=== PATIENT | male | born 1950 | race African-American/Black ===

== ENCOUNTER 2017-02-03 10:33 | Inpatient (IN) | payer OTHER ==
[2017-02-03] MEDS ORDERED: SODIUM CHLORIDE 1,000 ML IV STA ×2 (10:49→13:28)
[2017-02-03] MEDS ORDERED: PIPERACILLIN/TAZOB 3.375 GM 50 ML IVPB ONE (10:49)
[2017-02-03] MEDS ORDERED: VANCOMYCIN 1,250 MG in DEXTROSE 5%-WATER - 250 ML IVPB ONE (10:49)
--- NOTE | 2017-02-03 10:52 | PDOC ---
Attending Attestation - Resident Resident Name: Donald Healy - HPI HPI: 02/03/17 13:05 pt presents to the ED complaining of draining wound to the buttock that has been present for one week. Wound has copious purulent drainage. states that he was febrile last week, but that his fever has now resolved. Denies nausea or vomiting. Patient also denies scrotal pain or urinary complaints. Seen in wound clinic for this complaint today, and sent to the ED because of the extensive nature of the wound. - Physicial Exam PE: 02/03/17 13:25 Agree with resident exam. Patient has deep, foul smelling wound to the left buttock with extensive purlent drainage. wound is very deep and area of erythema involves his entire perineum. 02/03/17 13:38 - Medical Decision Making 02/03/17 13:39 pt presents to the ED complaining of wound to the buttocks. Patient shows clear signs of severe infection. Will give IV hydration and broad spectrum antibiotics and check CT to examine for perirectal abscess. Will admit for intravenous antibiotics and likely I and D in the OR.
--- NOTE | 2017-02-03 11:08 | PDOC ---
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 The patient is accompanied by family who assist in providing the history. They report that the patient began having a small sore near his rectum from riding his bike which eventually continued to progress over the last 1-2 weeks. They report that patient has been having intermittent fevers as well. They went to the wound clinic to be evaluated given the wound continued to drain purulent fluid and was very foul smelling. He denies chest pain, SOB, abdominal pain, or changes with urination. Past History - Past Medical History Allergies/Adverse Reactions: Allergies Allergy/AdvReac Type Severity Reaction Status Date / Time No Known Allergies Allergy Verified 02/03/17 10:40 Home Medications: Ambulatory Orders Unobtainable [Unobtainable] 06/17/16 Asthma: Yes COPD: No HTN: Yes - Suicide/Smoking/Psychosocial Hx Smoking History: Current every day smoker Have you smoked in the past 12 months: Yes Number of Cigarettes Smoked Daily: 10 Information on smoking cessation initiated: No Hx Alcohol Use: No Drug/Substance Use Hx: No Substance Use Type: None Review of Systems - Review of Systems Comments:: 02/03/17 11:27 Constitutional: Fevers. No chills, fatigue, malaise HEENT: No Rhinorrhea, nasal congestion, visual changes Cardiovascular: No chest pain, syncope, palpitations, lightheadedness Respiratory: No Cough, SOB, Hemoptysis, Gastrointestinal: No Abdominal pain, Nausea, Vomiting, Constipation, Diarrhea, Melena Genitourinary: Rectal wound. No Dysuria, Frequency, Urgency, Hesitancy, Hematuria, Flank pain Musculoskeletal: No Myalgia, arthralgia Skin: No rashes, itching, bruising, pallor Neurologic: No Headache, Dizziness, Numbness, Weakness, or Tingling Psychiatric: No Hallucinations. No SI or HI *Physical Exam - Vital Signs Last Vital Signs Temp Pulse Resp BP Pulse Ox 98.2 F 113 H 20 128/92 97 02/03/17 10:38 02/03/17 10:38 02/03/17 10:38 02/03/17 10:38 02/03/17 10:38 - Physical Exam Comments: 02/03/17 11:33 General Appearance: Nourished. No Apparent Distress HEENT: EOMI, SHERYL. No Pharyngeal Erythema, Tonsillar Exudate, Tonsillar Erythema Neck: No Cervical Lymphadenopathy Respiratory/Chest: Lungs Clear, Normal Breath Sounds. No Crackles, Rales, Rhonchi, Wheezing Cardiovascular: Regular Rhythm, Regular Rate. No Murmur, Gallops, Rubs Gastrointestinal/Abdominal: Normal Bowel Sounds, Soft. No Guarding, Rebound, Tenderness Rectal/Genital Exam: 4cm wound surrounding the rectum tracking deep to the perineum draining foul smelling purulent fluid. Enlarged tender scrotum. Musculoskeletal: No CVA Tenderness Extremity: Normal Capillary Refill Integumentary: Normal Color, Dry, Warm Neurologic: Fully Oriented, Alert, Normal Mood/Affect, Normal Response, ED Treatment Course - LABORATORY CBC & Chemistry Diagram: 02/04/17 07:00 02/04/17 07:00 - RADIOLOGY Radiology Studies Ordered: Category Date Time Status PELVIS CT WITH CONTRAST [CT] Stat CT Scan 02/03/17 10:47 Ordered CHEST X-RAY PORTABLE* [RAD] Stat Radiology 02/03/17 10:47 Ordered Medical Decision Making - Medical Decision Making 02/03/17 11:38 The patient is a 66 year old male who denies any PMH who presents for evaluation from wound clinic for 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 Differential includes but is not limited to: Rectal abscess, Fourneir's gangrene , Sepsis, metabolic derangement. 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 We will obtain a ct pelvis with iv contrast to evaluate the extent of the wound. We will obtain a cbc, cmp, type and screen, lactate, troponin, vbg as part of a sepsis work up. We will treat the patient with iv fluids, vanc and zosyn here in the ED. We will continue to monitor and reassess. 02/03/17 12:00 CBC demonstrates an elevated wbc to 19.2. CMP is unremarkable. We discussed the case with Dr. Jennings who accepted the patient for admission after ct scan is obtained and requested consultation with Dr. Hunter and Dr. Dave. We discussed the case with Dr. Hunter with Surgery who requested that we obtain ct with rectal contrast and will come evaluate the patient. We will give a second bolus of fluids and keep the patient npo. 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 Dr. Mckenzie is aware and has evaluated the patient. *DC/Admit/Observation/Transfer Diagnosis at time of Disposition: Rectal abscess - Discharge Dispostion Condition at time of disposition: Guarded Admit: Yes - Referrals - Patient Instructions - Post Discharge Activity
[2017-02-03] MEDS ORDERED: PIPERACILLIN/TAZOB 3.375 GM 3.375 GM/50 ML BAG IVPB ONE ×2 (12:00→18:19)
[2017-02-03] MEDS ORDERED: VANCOMYCIN 1 GRAM (PRE-DOCKED) 1,000 MG/250 ML BAG IVPB ONE (12:00)
[2017-02-03 12:30] LABS: HEMATOCRIT 47.1 % (35.4-49); HEMOGLOBIN 15.3 GM/dL (11.7-16.9); MCH 29.8 pg (25.7-33.7); MCHC 32.6 g/dl (32.0-35.9); MEAN CELL VOLUME 91.5 fl (80-96); MEAN PLT VOLUME 7.6 fl (7.5-11.1); PLATELET COUNT 326 K/MM3 (134-434); RBC 5.15 M/mm3 (4.00-5.60); RDW 15.8 % (11.9-15.9); WHITE BLOOD COUNT 19.3 K/mm3 (4.0-10.0)
[2017-02-03 12:47] LABS: INR 1.11 (0.82-1.09); PROTHROMBIN TIME (PATIENT) 12.5 SEC (9.98-11.88)
[2017-02-03 12:48] LABS: ALBUMIN 2.7 g/dl (3.4-5.0); ANION GAP 10 (8-16); BILIRUBIN,TOTAL 0.6 mg/dL (0.2-1.0); BLOOD UREA NITROGEN 32 mg/dL (7-18); CALCIUM 9.7 mg/dL (8.5-10.1); CHLORIDE 104 mmol/L (98-107); CO2 23 mmol/L (21-32); CREATININE 1.3 mg/dL (0.7-1.3); GLUCOSE,RANDOM 113 mg/dL (74-106); SGPT/ALT 98 U/L (12-78); SODIUM 137 mmol/L (136-145); TOT PROT 7.7 g/dl (6.4-8.2)
[2017-02-03 12:50] LABS: ACTIVATED PTT 31.8 SECONDS (26.9-34.4); ALK PHOS 256 U/L (45-117)
[2017-02-03 12:51] LABS: POTASSIUM 3.9 mmol/L (3.5-5.1); SGOT/AST 96 U/L (15-37)
[2017-02-03 13:00] LABS: PLATELET ESTIMATE ADEQUATE
[2017-02-03 13:03] LABS: LYMPHOCYTE # 1.5 % (8-40); NEUTROPHILS # 14.9 % (42.8-82.8)
[2017-02-03 13:12] LABS: VENOUS PH 7.41 (7.32-7.42)
[2017-02-03] MEDS ORDERED: morphine CARPU-JECT 4 MG/1 ML DISP.SYRIN IVPUSH ONE (13:30)
[2017-02-03] MEDS ORDERED: morphine CARPU-JECT 8 MG/1 ML DISP.SYRIN ONE (15:04)
[2017-02-03] MEDS ORDERED: ONDANSETRON *ODT* 4 MG TABLET SL PRN ×2 (16:16→20:51)
[2017-02-03] MEDS ORDERED: morphine CARPU-JECT 8 MG/1 ML DISP.SYRIN IVPUSH PRN ×2 (16:16→20:51)
--- NOTE | 2017-02-03 16:29 | EKG ---
Test Reason : Blood Pressure : / mmHG Vent. Rate : 106 BPM Atrial Rate : 106 BPM P-R Int : 160 ms QRS Dur : 070 ms QT Int : 344 ms P-R-T Axes : 073 056 063 degrees QTc Int : 456 ms SINUS TACHYCARDIA BIATRIAL ENLARGEMENT SEPTAL INFARCT , AGE UNDETERMINED ABNORMAL ECG NO PREVIOUS ECGS AVAILABLE Confirmed by RICKIE MARCUS MD ([id number]) on 02/03/2017 4:29:00 PM Referred By: Confirmed By:RICKIE MARCUS MD
--- NOTE | 2017-02-03 16:37 | CONSULT ---
Consult Consult Specialty:: general surgery Referred by:: vivian delgado - ED Reason for Consultation:: perirectal abscess - History of Present Illness Chief Complaint: josé rectal abscess History of Present Illness: 66 yo male PMH HTN on monotheerapy, hypercholeterolemia, s/p right hand partial finger amputation presented to the ED sen from wound care center with extensive left josé-anal pain and four smelling drainage worsening for 1 week. Its began one week ago as "a pimple" or saddle sore on the left buttock. He rides a bicycle every day from the [place] to [facility]. The left-sided swelling became much worse and drained 2 days ago. Pain is tolerable 3/10, but he takes pain medication for finger pain. Now the area constantly drains very foul smelling drainage. He has had qualitative fevers and diaphoresis around the same time. There was no change in is bowel habits, he is frequently constipated and has hard stools. He has no associated abdominal pain. He has never had a colonoscopy nor any abdominal surgery. He denies CP, SOB, palpitations, headaches. - History Source History Provided By: Patient Limitations to Obtaining History: No Limitations - Past Medical History Cardio/Vascular: Yes: HTN Gastrointestinal: Yes: Constipation Musculoskeletal: Yes: Other (finger amputation) Additional Medical History: hypercholesterolemia - Past Surgical History Past Surgical History: Yes: None - Alcohol/Substance Use Hx Alcohol Use: No - Smoking History Smoking history: Current every day smoker Have you smoked in the past 12 months: Yes Aproximately how many cigarettes per day: 10 Home Medications - Allergies Allergies/Adverse Reactions: Allergies Allergy/AdvReac Type Severity Reaction Status Date / Time No Known Allergies Allergy Verified 02/03/17 10:40 - Home Medications Home Medications: Ambulatory Orders Unobtainable [Unobtainable] 06/17/16 Review of Systems - Review of Systems Constitutional: reports: Diaphoresis, Fever. denies: Chills Eyes: denies: Blurred Vision, Recent Change in Vision HENT: denies: Difficult Swallowing, Throat Pain Neck: denies: Swollen Glands, Tenderness Respiratory: denies: Cough, SOB Gastrointestinal: reports: Constipation. denies: Abdominal Pain, Bloating Genitourinary: denies: Burning, Discharge Breasts: reports: No Symptoms Reported. denies: Pain Musculoskeletal: reports: Other (right hand finger partial amputation). denies : Muscle Cramps, Muscle Weakness Integumentary: reports: Lesions. denies: Rash Neurological: denies: Confusion, Dizziness Endocrine: denies: Unexplained Weight Gain, Unexplained Weight Loss Psychiatric: denies: Anxiety, Depression Pain Intensity: 3 Physical Exam Vital Signs: Vital Signs Temperature 98.2 F 02/03/17 10:38 Pulse Rate 113 H 02/03/17 10:38 Respiratory Rate 20 02/03/17 10:38 Blood Pressure 128/92 02/03/17 10:38 O2 Sat by Pulse Oximetry (%) 97 02/03/17 10:38 Vital Signs Period Temp Pulse Resp BP Sys/Borrero Pulse Ox Last 24 Hr 98.2 F 113 20 128/92 97 Constitutional: Yes: Well Nourished, Calm, Mild Distress, Thin Eyes: Yes: Conjunctiva Clear, EOM Intact HENT: Yes: Atraumatic, Normocephalic Neck: Yes: Supple, Trachea Midline Cardiovascular: Yes: Regular Rate and Rhythm, S1, S2 Respiratory: Yes: Regular, CTA Bilaterally Gastrointestinal: Yes: Normal Bowel Sounds, Soft. No: Tenderness, Tenderness, Epigastrium, Tenderness, Rebound, Vomiting ...Rectal Exam: Yes: Induration, Inflammation, Sphincter Tone Normal, Other ( open left gluteal abscess 10X6cm >2cm deep with necrotyic sking and foul smelling drainage) Renal/: Yes: Other (srotum and testicles are uninvolved). No: Bladder Distention, CVA Tenderness - Left, CVA Tenderness - Right, Scrotal Edema, Urethral Discharge Extremities: Yes: Amputation (right hand partial finger). No: Cool, Cyanosis Edema: No Peripheral Pulses WNL: Yes Wound/Incision: Yes: Draining, Reddened, Unapproximated (left josé-anal area entension into the perineum) Neurological: Yes: Alert, Oriented Psychiatric: Yes: Alert, Oriented Labs: CBC, BMP 02/03/17 12:20 02/03/17 12:20 Abnormal Lab Results 02/03/17 02/03/17 02/03/17 12:20 12:20 12:20 WBC 19.3 H Band Neut # 14.9 L Lymph # (Auto) 1.5 L Monocytes % (Manual) 11 H PT with INR 12.50 H POC VBG pCO2 36.0 L POC VBG pO2 56.0 H BUN Random Glucose AST ALT Alkaline Phosphatase Albumin 02/03/17 12:20 WBC Band Neut # Lymph # (Auto) Monocytes % (Manual) PT with INR POC VBG pCO2 POC VBG pO2 BUN 32 H Random Glucose 113 H AST 96 H ALT 98 H Alkaline Phosphatase 256 H Albumin 2.7 L Imaging - Results Cat Scan: Report Reviewed, Image Reviewed (massive SQ emphysema in the tissues, left gluteal area) Problem List - Problems (1) José-rectal abscess Assessment/Plan: 66 yo male with left josé-anal/gluteal abscess with early extension to the perineum and josé-rectal [id number]>2cm foul smelling draining NPO and IVF hydration IV antibiotics Analgesia OR for Emergency [facility] surgical debridement of the left josé-rectal abscess - Discussed with patient risks, benefits and alternatives of surgery including but not limited to bleeding, infection, injury to adjacent structures, leak or injury, need for further procedures, ; alternatives include antibiotics, delayed or no surgery - risks of this include failure of nonoperative therapy, perforation, sepsis, recurrence, . Patient desires to proceed with operation - will take to OR for above. Informed consent signed for same. Trend labs in AM GI consult Code(s): K61.1 - RECTAL ABSCESS (2) HTN (hypertension) Assessment/Plan: resume oral medication post op Code(s): I10 - ESSENTIAL (PRIMARY) HYPERTENSION Qualifiers: Hypertension type: essential hypertension Qualified Code(s): I10 - Essential (primary) hypertension (3) Hypercholesteremia Assessment/Plan: resume oral medication postop Code(s): E78.00 - PURE HYPERCHOLESTEROLEMIA, UNSPECIFIED (4) Chronic constipation Code(s): K59.09 - OTHER CONSTIPATION
[2017-02-03] MEDS ORDERED: PIPERACILLIN/TAZOB 3.375 GM 3.375 GM in DEXTROSE 5%-WATER - 100 ML IVPB SCH ×2 (18:00→22:00)
--- NOTE | 2017-02-03 18:05 | HP ---
CHIEF COMPLAINT: perianal abscess with drainage PCP: Jacobo Denson HISTORY OF PRESENT ILLNESS: This is a 66 year old male with PMHx of HTN, s/p right hand partial middle finger amputation who presented to the ED with josé-anal pain and foul smelling discharge since Tuesday. The patient reports that about two weeks ago he noticed a pimple on his left buttock that has worsened. It then began draining foul smelling drainage this past Tuesday. The patient states that it is painful. He denies any chills, fever, headache, dizziness, nausea, vomiting, diarrhea. He denies any abdominal pain. He has never had a colonoscopy or any abdominal surgery. ER course was notable for: (1) Temp 98.2, pulse 113, BP 128/92, resp 20, O2 97% on RA (2) WBC 19.3 (3) AST 96, ALT 98, Alk Phos 256 (4) Pelvis CT with subcutaneous air along the left perineum tracking ventrally into the ipsilateral heriscrotum. A small fluid collection is seen within the left hemiscrotum posteriorly suggestive of an abscess. An additional small fluid collection suggestive of abscess formation in the left perineal region Recent Travel: denies PAST MEDICAL HISTORY: As above PAST SURGICAL HISTORY: As above Social History: Smokin/2 ppd Alcohol: occasional on tuesday and tuesday nights (2 beers) Drugs: denies Family History: Allergies No Known Allergies Allergy (Verified 02/03/17 10:40) HOME MEDICATIONS: Home Medications Medication Instructions Recorded Unobtainable [Unobtainable] 06/17/16 REVIEW OF SYSTEMS CONSTITUTIONAL: Absent: fever, chills, diaphoresis, generalized weakness, malaise, loss of appetite, weight change HEENT: Absent: rhinorrhea, nasal congestion, throat pain, throat swelling, difficulty swallowing, mouth swelling, ear pain, eye pain, visual changes CARDIOVASCULAR: Absent: chest pain, syncope, palpitations, irregular heart rate , lightheadedness, peripheral edema RESPIRATORY: Absent: cough, shortness of breath, dyspnea with exertion, orthopnea, wheezing, stridor, hemoptysis GASTROINTESTINAL: José-anal abscess that began 2 weeks ago and started draining foul smelling fluid since Tuesday. Absent: abdominal pain, abdominal distension , nausea, vomiting, diarrhea, constipation, melena, hematochezia GENITOURINARY: Absent: dysuria, frequency, urgency, hesitancy, hematuria, flank pain, genital pain MUSCULOSKELETAL: Absent: myalgia, arthralgia, joint swelling, back pain, neck pain SKIN: José anal erythema, induration, edema, pain. Absent: rash, itching, pallor HEMATOLOGIC/IMMUNOLOGIC: Absent: easy bleeding, easy bruising, lymphadenopathy, frequent infections ENDOCRINE:Absent: unexplained weight gain, unexplained weight loss, heat intolerance, cold intolerance NEUROLOGIC: Absent: headache, focal weakness or paresthesias, dizziness, unsteady gait, seizure, mental status changes, bladder or bowel incontinence PSYCHIATRIC: Absent: anxiety, depression, suicidal or homicidal ideation, hallucinations. PHYSICAL EXAMINATION Vital Signs - 24 hr 02/03/17 02/03/17 10:38 17:08 Temperature 98.2 F Pulse Rate 113 H Pulse Rate [ 90 Apical] Respiratory 20 16 Rate Blood Pressure 128/92 Blood Pressure 120/77 [Left] O2 Sat by Pulse 97 94 L Oximetry (%) GENERAL: Awake, alert, and fully oriented, in no acute distress. HEAD: Normal with no signs of trauma. EYES: Pupils equal, round and reactive to light, extraocular movements intact, sclera anicteric, conjunctiva clear. No lid lag. EARS, NOSE, THROAT: Ears normal, nares patent, oropharynx clear without exudates. Moist mucous membranes. NECK: Normal range of motion, supple without lymphadenopathy, JVD, or masses. LUNGS: Breath sounds equal, clear to auscultation bilaterally. HEART: Regular rate and rhythm, normal S1 and S2 ABDOMEN: Soft, nontender, not distended, normoactive bowel sounds, no guarding, no rebound, no masses. No hepatomegaly or splenomegaly. : Open left gluteal abscess with nectrotic skin and foul smelling drainage MUSCULOSKELETAL: Normal range of motion at all joints. No bony deformities or tenderness. No CVA tenderness. UPPER EXTREMITIES: Right hand middle finger with partial amputation. 2+ pulses, warm, well-perfused. No cyanosis. No clubbing. No peripheral edema. LOWER EXTREMITIES: 2+ pulses, warm, well-perfused. No calf tenderness. No peripheral edema. NEUROLOGICAL: Cranial nerves II-XII intact. Normal speech. Normal gait. PSYCHIATRIC: Cooperative. Good eye contact. Appropriate mood and affect. SKIN: Warm, dry, normal turgor, no rashes or lesions noted, normal capillary refill. Laboratory Results - last 24 hr 02/03/17 02/03/17 02/03/17 12:20 12:20 12:20 WBC 19.3 H RBC 5.15 Hgb 15.3 Hct 47.1 MCV 91.5 MCH 29.8 MCHC 32.6 RDW 15.8 Plt Count 326 MPV 7.6 Band Neut # 14.9 L Lymph # (Auto) 1.5 L Total Counted 100 Neutrophils % No Result Required. Neutrophils % (Manual) 77.0 Lymphocytes % No Result Required. Lymphocytes % (Manual) 8.0 Monocytes % (Manual) 11 H Eosinophils % (Manual) 3.0 Basophils % (Manual) 1.0 Platelet Estimate Adequate PT with INR 12.50 H INR 1.11 PTT (Actin FS) 31.8 VBG pH 7.41 POC VBG pCO2 36.0 L POC VBG pO2 56.0 H Mixed VBG HCO3 22.3 Sodium Potassium Chloride Carbon Dioxide Anion Gap BUN Creatinine Creat Clearance w eGFR Random Glucose Lactic Acid Calcium Total Bilirubin AST ALT Alkaline Phosphatase Creatine Kinase Troponin I Total Protein Albumin Blood Type Antibody Screen 02/03/17 02/03/17 02/03/17 12:20 12:20 13:20 WBC RBC Hgb Hct MCV MCH MCHC RDW Plt Count MPV Band Neut # Lymph # (Auto) Total Counted Neutrophils % Neutrophils % (Manual) Lymphocytes % Lymphocytes % (Manual) Monocytes % (Manual) Eosinophils % (Manual) Basophils % (Manual) Platelet Estimate PT with INR INR PTT (Actin FS) VBG pH POC VBG pCO2 POC VBG pO2 Mixed VBG HCO3 Sodium 137 Potassium 3.9 Chloride 104 Carbon Dioxide 23 Anion Gap 10 BUN 32 H Creatinine 1.3 Creat Clearance w eGFR 55.58 Random Glucose 113 H Lactic Acid 1.5 Calcium 9.7 Total Bilirubin 0.6 AST 96 H ALT 98 H Alkaline Phosphatase 256 H Creatine Kinase 98 Troponin I 0.02 Total Protein 7.7 Albumin 2.7 L Blood Type O POSITIVE Antibody Screen Negative Assessment: This is a 66 year old male with PMHx of HTN, s/p right hand partial middle finger amputation who presented to the ED with josé-anal pain and foul smelling discharge since Tuesday. Plan: 1) Sepsis 2/2 josé-rectal abscess - NPO - IV fluids - Given Vanco and Zosyn in the ED - Continue antibiotics: awaiting ID consult - Pain management - For OR for debridement - F/u HgbA1c - F/u HIV - Appreciate surgery consult 2) HTN - Not on home meds? - Continue to monitor BP 3) Elevated AST, ALT, alk phos - F/u liver ultrasound - Continue to trend 4) F/E/N: - IV fluids - NPO - Monitor electrolytes 5) Prophylaxis - Hold all chemical DVT prophylaxis as the patient is going to the OR 6) Dispo: - Requires continued inpatient care CODE STATUS: FULL CODE Visit type - Emergency Visit Emergency Visit: Yes ED Registration Date: 02/03/17 Care time: The patient presented to the Emergency Department on the above date and was hospitalized for further evaluation of their emergent condition. - New Patient This patient is new to me today: Yes Date on this admission: 02/03/17 - Critical Care Critical Care patient: No
[2017-02-03 18:45] LABS: URINE APPEARANCE CLEAR; URINE BILIRUBIN NEGATIVE (NEGATIVE); URINE BLOOD NEGATIVE (NEGATIVE); URINE COLOR YELLOW; URINE GLUCOSE (UA) NEGATIVE (NEGATIVE); URINE KETONE NEGATIVE (NEGATIVE); URINE LEUK ESTERASE NEGATIVE (NEGATIVE); URINE NITRITE NEGATIVE (NEGATIVE); URINE PROTEIN NEGATIVE (NEGATIVE); URINE UROBILINOGEN 4.0 E.U/dl mg/dL (0.2-1.0)
[2017-02-03] MEDS ORDERED: MIDAZOLAM HCL 2 MG/2 ML SINGLE DOSE VIAL ONE (19:28)
[2017-02-03] MEDS ORDERED: SUCCINYLCHOLINE CHLORIDE 200 MG/10 ML VIAL ONE (19:28)
[2017-02-03] MEDS ORDERED: PROPOFOL 20 ML ONE (19:28)
[2017-02-03] MEDS ORDERED: LIDOCAINE HCL/PF 2% SDV 5ML VIAL ONE (19:40)
[2017-02-03] MEDS ORDERED: fentaNYL CITRATE 250 MCG/5 ML VIAL ONE (20:06)
[2017-02-03] MEDS ORDERED: DEXAMETHASONE SOD PHOSPHATE 4 MG/1 ML VIAL ONE (20:08)
[2017-02-03] MEDS ORDERED: PIPERACILLIN/TAZOB 3.375 GM/50 ML PRE-DOCKED IVPB SCH (20:30)
[2017-02-03] MEDS ORDERED: HYDROmorphone HCL CARPU-JECT 1 MG/1 ML DISP.SYRIN IVPUSH PRN (20:33)
[2017-02-03] MEDS ORDERED: ONDANSETRON 4 MG/2 ML VIAL IVPUSH PRN (20:33)
--- NOTE | 2017-02-03 20:40 | OP ---
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
[2017-02-03] MEDS ORDERED: HEPARIN NA (PORCINE) 5,000 UNITS/ML 1ML VIAL SQ SCH (22:00)
[2017-02-03] MEDS ORDERED: PIPERACILLIN/TAZOB 3.375 GM 50 ML IVPB SCH (22:00)
[2017-02-04 00:28] VITALS: BMI 21.9
[2017-02-04] MEDS: PIPERACILLIN/TAZOB 3.375 GM 3.375 GM in DEXTROSE 5%-WATER - 100 ML IVPB SCH ×2 (01:17→10:11)
[2017-02-04] MEDS ORDERED: PIPERACILLIN/TAZOB 3.375 GM/50 ML PRE-DOCKED IVPB SCH (02:00)
[2017-02-04] MEDS: CLINDAMYCIN 900 MG PREMIX IVPB 900 MG/50 ML BAG IVPB SCH ×3 (02:06→17:33)
[2017-02-04 08:50] LABS: HEMATOCRIT 41.2 % (35.4-49); HEMOGLOBIN 13.1 GM/dL (11.7-16.9); MCH 29.1 pg (25.7-33.7); MCHC 31.7 g/dl (32.0-35.9); MEAN CELL VOLUME 91.8 fl (80-96); MEAN PLT VOLUME 7.6 fl (7.5-11.1); PLATELET COUNT 355 K/MM3 (134-434); RBC 4.49 M/mm3 (4.00-5.60); RDW 15.9 % (11.9-15.9)
[2017-02-04 09:23] LABS: ALBUMIN 2.2 g/dl (3.4-5.0); ANION GAP 9 (8-16); BLOOD UREA NITROGEN 27 mg/dL (7-18); CALCIUM 9.4 mg/dL (8.5-10.1); CHLORIDE 108 mmol/L (98-107); CO2 23 mmol/L (21-32); CREATININE 1.1 mg/dL (0.7-1.3); GLUCOSE,RANDOM 128 mg/dL (74-106); POTASSIUM 4.7 mmol/L (3.5-5.1); SGPT/ALT 51 U/L (12-78); SODIUM 140 mmol/L (136-145)
[2017-02-04 09:25] LABS: ALK PHOS 174 U/L (45-117); BILIRUBIN,TOTAL 0.6 mg/dL (0.2-1.0); SGOT/AST 21 U/L (15-37); TOT PROT 6.7 g/dl (6.4-8.2)
--- NOTE | 2017-02-04 09:33 | HP ---
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 The patient is accompanied by family who assist in providing the history. They report that the patient began having a small sore near his rectum from riding his bike which eventually continued to progress over the last 1-2 weeks. They report that patient has been having intermittent fevers as well. They went to the wound clinic to be evaluated given the wound continued to drain purulent fluid and was very foul smelling. He denies chest pain, SOB, abdominal pain, or changes with urination. History Source: Medical Record Limitations to Obtaining History: Poor Historian - Past Medical History Cardiovascular: Yes: HTN Gastrointestinal: Yes: Constipation Musculoskeletal: Yes: Other (finger amputation) - Past Surgical History Past Surgical History: Yes: None - Smoking History Smoking history: Never smoked Have you smoked in the past 12 months: Yes Aproximately how many cigarettes per day: 10 - Alcohol/Substance Use Hx Alcohol Use: No Home Medications - Allergies Allergies/Adverse Reactions: Allergies Allergy/AdvReac Type Severity Reaction Status Date / Time No Known Allergies Allergy Verified 02/03/17 10:40 - Home Medications Home Medications: Ambulatory Orders Unobtainable [Unobtainable] 06/17/16 Review of Systems - Review of Systems Constitutional: reports: Loss of Appetite, Malaise Eyes: reports: No Symptoms HENT: reports: No Symptoms Neck: reports: No Symptoms Cardiovascular: reports: No Symptoms Respiratory: reports: No Symptoms Gastrointestinal: reports: No Symptoms Genitourinary: reports: Other Musculoskeletal: reports: No Symptoms, Muscle Weakness Integumentary: reports: No Symptoms Neurological: reports: Pre-Existing Deficit Endocrine: reports: No Symptoms Hematology/Lymphatic: reports: No Symptoms Psychiatric: reports: No Symptoms Physical Examination Vital Signs: Vital Signs Temperature 98.2 F 02/04/17 02:00 Pulse Rate 84 02/04/17 02:00 Respiratory Rate 18 02/04/17 02:00 Blood Pressure 118/78 02/04/17 02:00 O2 Sat by Pulse Oximetry (%) 100 02/03/17 23:00 Constitutional: Yes: Mild Distress Eyes: Yes: WNL HENT: Yes: WNL Neck: Yes: WNL Cardiovascular: Yes: WNL Respiratory: Yes: WNL Gastrointestinal: Yes: WNL Renal/: Yes: WNL Musculoskeletal: Yes: Muscle Weakness Extremities: Yes: WNL Edema: No Peripheral Pulses WNL: Yes Integumentary: Yes: Pressure Ulcer, Rash, Skin Tear, Other Wound/Incision: Yes: Dressing Dry and Intact Neurological: Yes: Other ...Motor Strength: LLE, RLE Psychiatric: Yes: Other Labs: CBC, BMP 02/04/17 07:00 02/04/17 07:00 Problem List - Problems (1) Chronic constipation Code(s): K59.09 - OTHER CONSTIPATION (2) HTN (hypertension) Code(s): I10 - ESSENTIAL (PRIMARY) HYPERTENSION Qualifiers: Hypertension type: essential hypertension Qualified Code(s): I10 - Essential (primary) hypertension (3) Bee-rectal abscess Code(s): K61.1 - RECTAL ABSCESS Assessment/Plan DEBRIDEMENT WITH SURGERY IV ABX ID CONSULT DVT PROPHYLAXIS
[2017-02-04] MEDS: LACTATED RINGERS SOLUTION 1,000 ML IV SCH (10:10)
[2017-02-04] MEDS: HEPARIN NA (PORCINE) 5,000 UNITS/ML 1ML VIAL SQ SCH ×3 (10:17→22:03)
--- NOTE | 2017-02-04 10:31 | PN ---
Progress Note, Physician Chief Complaint: perianal necrotizing infection History of Present Illness: 66 yo male PMH HTN on monotheerapy, hypercholeterolemia, s/p right hand partial finger amputation presented to the ED sen from wound care center with extensive left bee-anal pain and four smelling drainage worsening for 1 week. s/p sharp debridement of he left bee-anal and perineal area. Dressing was disloged overnight and was replaced by the nurse. - Current Medication List Current Medications: Active Medications Heparin Sodium (Porcine) (Heparin -) 5,000 unit SQ BID DONG Last Admin: 02/04/17 10:17 Dose: 5,000 unit Lactated Ringer's (Lactated Ringers Solution) 1,000 mls @ 75 mls/hr IV ASDIR DONG Last Admin: 02/04/17 10:10 Dose: 75 mls/hr Piperacillin Sod/Tazobactam (Sod 3.375 gm/ Dextrose) 100 mls @ 200 mls/hr IVPB Q8H-IV DONG Last Admin: 02/04/17 10:11 Dose: 200 mls/hr Clindamycin Phosphate (Cleocin 900 Mg Premix Ivpb -) 900 mg in 50 mls @ 100 mls /hr IVPB Q8H-IV DONG Last Admin: 02/04/17 02:06 Dose: 100 mls/hr Morphine Sulfate (Morphine Sulfate) 4 mg IVPUSH Q6H PRN PRN Reason: PAIN Ondansetron HCl (Zofran Odt -) 4 mg SL Q6H PRN PRN Reason: NAUSEA AND/OR VOMITING - Objective Vital Signs: Vital Signs Temperature 98.2 F 02/04/17 02:00 Pulse Rate 84 02/04/17 02:00 Respiratory Rate 18 02/04/17 02:00 Blood Pressure 118/78 02/04/17 02:00 O2 Sat by Pulse Oximetry (%) 100 02/03/17 23:00 Vital Signs Period Temp Pulse Resp BP Sys/Borrero Pulse Ox Last 24 Hr 97.9 F-98.6 F 83-113 10-20 118-163/77-92 94-100 Constitutional: Yes: Well Nourished Eyes: Yes: Conjunctiva Clear, EOM Intact HENT: Yes: Atraumatic, Normocephalic Neck: Yes: Supple, Trachea Midline Cardiovascular: Yes: Regular Rate and Rhythm, S1, S2 Respiratory: Yes: Regular, CTA Bilaterally Gastrointestinal: Yes: Normal Bowel Sounds, Soft. No: Tenderness, Tenderness, Epigastrium Genitourinary: No: CVA Tenderness - Left, CVA Tenderness - Right Musculoskeletal: No: Muscle Pain, Muscle Weakness Edema: Yes Wound/Incision: Yes: Dressing Removed, Unapproximated (Wound Measurement: left perianal and perineum to the tail of the left hemiscrotum, 15cm X 8cm X 2cm Dressing: Fat emulsion Dressing, 4X4 gauze, ABD/ Combine and Silk tape). No: Draining, Reddened Neurological: Yes: Alert, Oriented Psychiatric: Yes: Alert, Oriented Labs: CBC, BMP 02/04/17 07:00 02/04/17 07:00 INR, PTT INR 1.11 (0.82-1.09) 02/03/17 12:20 Problem List - Problems (1) Jess gangrene Assessment/Plan: 66 yo male with left bee-anal/gluteal abscess with early extension to the perineum and bee-rectal s/p sharp debridement IV antibiotics per ID - Dr. Dave Adequate Analgesia Trend labs in AM consult Dr. John Cobos - for evaluation of the scrotum local wound care - dressing daily Wound Measurement: left perianal and perineum, 15cm X 8cm X 2cm Dressing: Fat emulsion Dressing, 4X4 gauze, ABD/ Combine and Silk tape Dr. Hunter is covering for the weekend Code(s): N49.3 - JESS GANGRENE (2) Bee-rectal abscess Code(s): K61.1 - RECTAL ABSCESS (3) HTN (hypertension) Code(s): I10 - ESSENTIAL (PRIMARY) HYPERTENSION Qualifiers: Hypertension type: essential hypertension Qualified Code(s): I10 - Essential (primary) hypertension (4) Hypercholesteremia Code(s): E78.00 - PURE HYPERCHOLESTEROLEMIA, UNSPECIFIED (5) Chronic constipation Code(s): K59.09 - OTHER CONSTIPATION
--- NOTE | 2017-02-04 11:46 | CON.ID ---
Consult Consult Specialty:: infectious diseases Reason for Consultation:: perineal abscess - History of Present Illness History of Present Illness: 66 yo male PMH HTN on monotheerapy, hypercholeterolemia, s/p right hand partial finger amputation presented was send from wound care center with extensive left josé-anal pain and four smelling drainage worsening for 1 week. Its began one week ago as "a pimple" or saddle sore on the left buttock. 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 The left-sided swelling became much worse and drained 2 days ago. Pain was intolerable and also the area after opening has been constantly draining which foul smell denies any other issues,no coonoscopy as of yet patient was malachi by surgery and was taken to the operating room and drainage was done patient currently post op and doing well and says he is feeling better - History Source History Provided By: Patient Limitations to Obtaining History: No Limitations - Past Medical History Cardio/Vascular: Yes: HTN Gastrointestinal: Yes: Constipation Musculoskeletal: Yes: Other (finger amputation) Additional Medical History: hypercholesterolemia - Past Surgical History Past Surgical History: Yes: None - Alcohol/Substance Use Hx Alcohol Use: No - Smoking History Smoking history: Never smoked Have you smoked in the past 12 months: Yes Aproximately how many cigarettes per day: 10 Home Medications - Allergies Allergies/Adverse Reactions: Allergies Allergy/AdvReac Type Severity Reaction Status Date / Time No Known Allergies Allergy Verified 02/03/17 10:40 - Home Medications Home Medications: Ambulatory Orders Unobtainable [Unobtainable] 06/17/16 Review of Systems - Review of Systems Constitutional: reports: No Symptoms Eyes: reports: No Symptoms HENT: reports: No Symptoms Neck: reports: No Symptoms Cardiovascular: reports: No Symptoms Respiratory: reports: No Symptoms Gastrointestinal: reports: No Symptoms Genitourinary: reports: No Symptoms, Other (rectal pain) Musculoskeletal: reports: No Symptoms Integumentary: reports: No Symptoms Neurological: reports: No Symptoms Endocrine: reports: No Symptoms Hematology/Lymphatic: reports: No Symptoms Psychiatric: reports: No Symptoms Physical Exam Vital Signs: Vital Signs Temperature 98.2 F 02/04/17 02:00 Pulse Rate 84 02/04/17 02:00 Respiratory Rate 18 02/04/17 02:00 Blood Pressure 118/78 02/04/17 02:00 O2 Sat by Pulse Oximetry (%) 100 02/03/17 23:00 Constitutional: Yes: No Distress, Thin HENT: Yes: Atraumatic Neck: Yes: Supple Cardiovascular: Yes: Regular Rate and Rhythm Respiratory: Yes: Regular, CTA Bilaterally Gastrointestinal: Yes: Normal Bowel Sounds, Soft ...Rectal Exam: Yes: Deferred, Other (post op abscess draiange) Musculoskeletal: Yes: WNL Extremities: Yes: WNL Neurological: Yes: Alert, Oriented Psychiatric: Yes: Alert, Oriented Labs: CBC, BMP 02/04/17 07:00 02/04/17 07:00 Imaging - Results Chest X-ray: Report Reviewed, Image Reviewed Cat Scan: Report Reviewed, Image Reviewed Ultrasound: Report Reviewed, Image Reviewed Assessment/Plan Problem List - Problems (1) José-rectal abscess Assessment/Plan: 66 yo male with left josé-anal/gluteal abscess with early extension to the perineum and josé-rectal [id number] foul smelling draining Code(s): K61.1 - RECTAL ABSCESS (2) HTN (hypertension) Code(s): I10 - ESSENTIAL (PRIMARY) HYPERTENSION Qualifiers: Hypertension type: essential hypertension Qualified Code(s): I10 - Essential (primary) hypertension (3) Hypercholesteremia Code(s): E78.00 - PURE HYPERCHOLESTEROLEMIA, UNSPECIFIED (4) Chronic constipation Code(s): K59.09 - OTHER CONSTIPATION leukocytosis i adolfo discussed the case with surgery plan continue as per surgery will increase dose of zosyn rest as per primary team and surgery will monitor wbc
[2017-02-04] MEDS ORDERED: PIPERACILLIN IVPB SCH (11:48)
[2017-02-04] MEDS ORDERED: DEXTROSE 5% IVPB SCH (11:48)
[2017-02-04] MEDS ORDERED: WATER IVPB SCH (11:48)
[2017-02-04] MEDS ORDERED: TAZOB IVPB SCH (11:48)
--- NOTE | 2017-02-04 11:53 | CON.GI ---
Consult Consult Specialty:: GI - History of Present Illness History of Present Illness: Chart reviewed, events noted. A 66 yom with HTN, benign polyps on colonoscopy 4 y ago presented with perianal abscess and perineal infection that apparently begun as a local skin infection 1 week ago. There is no personal, or family history of IBD, chronic colitis. The patient reports no recent, or acute, or ongoing GI-related issues. No weight loss, melena, hematochezia, fever chills, dysphagia, odynophagia. No jaundice. Rides bicycle from [place] to [place] daily. - History Source History Provided By: Patient - Past Medical History Cardio/Vascular: Yes: HTN Gastrointestinal: Yes: Constipation Musculoskeletal: Yes: Other (finger amputation) Additional Medical History: hypercholesterolemia - Past Surgical History Past Surgical History: Yes: None - Alcohol/Substance Use Hx Alcohol Use: No - Smoking History Smoking history: Never smoked Have you smoked in the past 12 months: Yes Aproximately how many cigarettes per day: 10 Home Medications - Allergies Allergies/Adverse Reactions: Allergies Allergy/AdvReac Type Severity Reaction Status Date / Time No Known Allergies Allergy Verified 02/03/17 10:40 - Home Medications Home Medications: Ambulatory Orders Unobtainable [Unobtainable] 06/17/16 Family Disease History - Family Disease History Family History: Unremarkable Review of Systems Findings/Remarks: As per H&P and HPI Physical Exam-GI Vital Signs: Vital Signs Temperature 98.2 F 02/04/17 02:00 Pulse Rate 84 02/04/17 02:00 Respiratory Rate 18 02/04/17 02:00 Blood Pressure 118/78 02/04/17 02:00 O2 Sat by Pulse Oximetry (%) 100 02/03/17 23:00 Constitutional: Yes: Well Nourished, No Distress, Calm Eyes: Yes: Conjunctiva Clear HENT: Yes: Atraumatic Neck: Yes: Supple Cardiovascular: Yes: Regular Rate and Rhythm Respiratory: Yes: Regular ...Auscultate: Yes: Normoactive Bowel Sounds ...Rectal Exam: Yes: Other (s/p debridement by sx, dressing) Wound/Incision: Yes: Dressing Dry and Intact Neurological: Yes: Alert, Oriented Labs: CBC, BMP 02/04/17 07:00 02/04/17 07:00 INR, PTT INR 1.11 (0.82-1.09) 02/03/17 12:20 CBCD WBC 19.0 K/mm3 (4.0-10.0) H 02/04/17 07:00 RBC 4.49 M/mm3 (4.00-5.60) 02/04/17 07:00 Hgb 13.1 GM/dL (11.7-16.9) D 02/04/17 07:00 Hct 41.2 % (35.4-49) 02/04/17 07:00 MCV 91.8 fl (80-96) 02/04/17 07:00 MCHC 31.7 g/dl (32.0-35.9) L 02/04/17 07:00 RDW 15.9 % (11.9-15.9) 02/04/17 07:00 Plt Count 355 K/MM3 (134-434) 02/04/17 07:00 MPV 7.6 fl (7.5-11.1) 02/04/17 07:00 CMP Sodium 140 mmol/L (136-145) 02/04/17 07:00 Potassium 4.7 mmol/L (3.5-5.1) D 02/04/17 07:00 Chloride 108 mmol/L (98-107) H 02/04/17 07:00 Carbon Dioxide 23 mmol/L (21-32) 02/04/17 07:00 Anion Gap 9 (8-16) 02/04/17 07:00 BUN 27 mg/dL (7-18) H 02/04/17 07:00 Creatinine 1.1 mg/dL (0.7-1.3) 02/04/17 07:00 Creat Clearance w eGFR > 60 (>60) 02/04/17 07:00 Calcium 9.4 mg/dL (8.5-10.1) 02/04/17 07:00 Total Bilirubin 0.6 mg/dL (0.2-1.0) 02/04/17 07:00 AST 21 U/L (15-37) D 02/04/17 07:00 ALT 51 U/L (12-78) D 02/04/17 07:00 Alkaline Phosphatase 174 U/L (45-117) H D 02/04/17 07:00 Total Protein 6.7 g/dl (6.4-8.2) 02/04/17 07:00 Albumin 2.2 g/dl (3.4-5.0) L 02/04/17 07:00 Imaging - Results Cat Scan: Report Reviewed Ultrasound: Report Reviewed (sludge) Assessment/Plan A 66 yom with acute perianal abcess and perineal infection without history, or symptoms suggestive of chronic GI involvement. Do not suspect IBD, specifically , Crohn's with perineal, josé-anal involvement. Asymptomatic biliary sludge. Management as per surgery and ID. Screening colonoscopy in 1 year. Discussed with the patient
--- NOTE | 2017-02-04 14:29 | PN ---
Progress Note (short form) - Note Progress Note: Pt day #1 s/p I and D perianal abscess. Doing well, no anesthetic issues. Being followed by ID and surgery for abscess. Continue current management
--- NOTE | 2017-02-04 17:51 | CONSULT ---
Consult - text type - Consultation Consultation Note: cc: evette's gangrene hpi patient s/p debridement of perineum and perianal area. Patient on broad spectrum antibiotics. PE scrotum with minimal purulent drainage without evidence of gangrene/testes wnl/ oenis wnl imp evette's gangrene s/p sharp debridement plan continue antibiotics wet to dry dressing of scrotum
[2017-02-04] MEDS ORDERED: PT OWN MED DRAWER 7, Y5N ONE ×2 (17:52→20:28)
[2017-02-04 19:29] LABS: BASO % 0.3 % (0-2.0); EOS % 0.1 % (0-4.5); HEMATOCRIT 39.4 % (35.4-49); HEMOGLOBIN 12.8 GM/dL (11.7-16.9); LYMPH % 17.4 % (8-40); MCH 29.8 pg (25.7-33.7); MCHC 32.4 g/dl (32.0-35.9); MEAN CELL VOLUME 91.8 fl (80-96); MEAN PLT VOLUME 7.6 fl (7.5-11.1); MONO % 13.2 % (3.8-10.2); PLATELET COUNT 338 K/MM3 (134-434); RBC 4.29 M/mm3 (4.00-5.60); RDW 16.2 % (11.9-15.9); WHITE BLOOD COUNT 18.3 K/mm3 (4.0-10.0)
[2017-02-04] MEDS: BENZOCAINE/MENTH/CETYLPYRD CL 1 EACH LOZENGE MM PRN (22:23)
[2017-02-05] MEDS: PIPERACILLIN/TAZOB 4.5 GM 4.5 GM in DEXTROSE 5%-WATER - 100 ML IVPB SCH ×3 (01:21→17:52)
[2017-02-05] MEDS: LACTATED RINGERS SOLUTION 1,000 ML IV SCH ×2 (01:22→17:52)
[2017-02-05] MEDS: CLINDAMYCIN 900 MG PREMIX IVPB 900 MG/50 ML BAG IVPB SCH ×3 (01:32→17:52)
[2017-02-05 09:19] LABS: BASO % 0.5 % (0-2.0); EOS % 0.7 % (0-4.5); HEMATOCRIT 38.7 % (35.4-49); HEMOGLOBIN 12.4 GM/dL (11.7-16.9); LYMPH % 33.8 % (8-40); MCH 29.2 pg (25.7-33.7); MCHC 32.1 g/dl (32.0-35.9); MEAN CELL VOLUME 91.1 fl (80-96); MEAN PLT VOLUME 7.3 fl (7.5-11.1); MONO % 11.9 % (3.8-10.2); NEUT % 53.1 % (42.8-82.8); PLATELET COUNT 338 K/MM3 (134-434); RBC 4.25 M/mm3 (4.00-5.60); RDW 15.8 % (11.9-15.9); WHITE BLOOD COUNT 12.3 K/mm3 (4.0-10.0)
[2017-02-05] MEDS: HEPARIN NA (PORCINE) 5,000 UNITS/ML 1ML VIAL SQ SCH ×2 (09:59→21:55)
[2017-02-05] MEDS: BENZOCAINE/MENTH/CETYLPYRD CL 1 EACH LOZENGE MM PRN ×2 (10:02→17:51)
--- NOTE | 2017-02-05 14:03 | PN ---
Progress Note, Physician History of Present Illness: Pt seen and examined. Events noted, labs reviewed. He is s/p I+D of perineal/ perianal necrotic abscess. States he has less pain. Denies fever/chills. Has no specific complaints. - Current Medication List Current Medications: Active Medications Benzocaine/Menthol (Cepacol Lozenge -) 1 each MM PRN PRN PRN Reason: SORE THROAT Last Admin: 02/05/17 10:02 Dose: 1 each Heparin Sodium (Porcine) (Heparin -) 5,000 unit SQ BID DONG Last Admin: 02/05/17 09:59 Dose: 5,000 unit Lactated Ringer's (Lactated Ringers Solution) 1,000 mls @ 75 mls/hr IV ASDIR DONG Last Admin: 02/05/17 01:22 Dose: 75 mls/hr Clindamycin Phosphate (Cleocin 900 Mg Premix Ivpb -) 900 mg in 50 mls @ 100 mls /hr IVPB Q8H-IV DONG Last Admin: 02/05/17 10:01 Dose: 100 mls/hr Piperacillin Sod/Tazobactam (Sod 4.5 gm/ Dextrose) 100 mls @ 200 mls/hr IVPB Q8H-IV DONG Last Admin: 02/05/17 10:02 Dose: 200 mls/hr Morphine Sulfate (Morphine Sulfate) 4 mg IVPUSH Q6H PRN PRN Reason: PAIN Ondansetron HCl (Zofran Odt -) 4 mg SL Q6H PRN PRN Reason: NAUSEA AND/OR VOMITING - Objective Vital Signs: Vital Signs Temperature 98.3 F 02/05/17 06:00 Pulse Rate 70 02/05/17 06:00 Respiratory Rate 18 02/05/17 06:00 Blood Pressure 140/84 02/05/17 06:00 O2 Sat by Pulse Oximetry (%) 100 02/04/17 22:00 Constitutional: Yes: No Distress, Calm Neck: Yes: Supple Cardiovascular: Yes: Regular Rate and Rhythm Respiratory: Yes: CTA Bilaterally Gastrointestinal: Yes: Normal Bowel Sounds, Soft Extremities: Yes: WNL Wound/Incision: Yes: Dressing Dry and Intact Neurological: Yes: Alert, Oriented Labs: CBC, BMP 02/05/17 08:45 02/04/17 07:00 INR, PTT INR 1.11 (0.82-1.09) 02/03/17 12:20 Microbiology 02/03/17 10:47 Blood - Peripheral Venous Blood Culture - Preliminary NO GROWTH OBTAINED AFTER 48 HOURS, INCUBATION TO CONTINUE FOR 3 DAYS. 02/03/17 10:47 Blood - Peripheral Venous Blood Culture - Preliminary NO GROWTH OBTAINED AFTER 48 HOURS, INCUBATION TO CONTINUE FOR 3 DAYS. 02/03/17 08:25 Abscess Gram Stain - Final 02/03/17 08:25 Abscess Wound Culture - Preliminary Lactose Fermenting Neg Bacilli Pending Organism Pending Organism#2 02/03/17 12:20 Urine - Urine Clean Catch Urine Culture - Final NO GROWTH OBTAINED Problem List - Problems (1) Bee-rectal abscess Code(s): K61.1 - RECTAL ABSCESS (2) HTN (hypertension) Code(s): I10 - ESSENTIAL (PRIMARY) HYPERTENSION Qualifiers: Hypertension type: essential hypertension Qualified Code(s): I10 - Essential (primary) hypertension (3) Hypercholesteremia Code(s): E78.00 - PURE HYPERCHOLESTEROLEMIA, UNSPECIFIED (4) Jess gangrene Code(s): N49.3 - JESS GANGRENE Assessment/Plan 66 y.o. male with bee-anal/perineal necrotic abscess now s/p sharp debridement/ drainage -- continue Zosyn/Clindamycin for now -- f/u wound culture results -- continue wound care will f/u
--- NOTE | 2017-02-05 16:15 | PN ---
Progress Note, Physician Chief Complaint: AWAKE ALERT FEELING BETTER - Current Medication List Current Medications: Active Medications Benzocaine/Menthol (Cepacol Lozenge -) 1 each MM PRN PRN PRN Reason: SORE THROAT Last Admin: 02/05/17 10:02 Dose: 1 each Heparin Sodium (Porcine) (Heparin -) 5,000 unit SQ BID DONG Last Admin: 02/05/17 09:59 Dose: 5,000 unit Lactated Ringer's (Lactated Ringers Solution) 1,000 mls @ 75 mls/hr IV ASDIR DONG Last Admin: 02/05/17 01:22 Dose: 75 mls/hr Clindamycin Phosphate (Cleocin 900 Mg Premix Ivpb -) 900 mg in 50 mls @ 100 mls /hr IVPB Q8H-IV DONG Last Admin: 02/05/17 10:01 Dose: 100 mls/hr Piperacillin Sod/Tazobactam (Sod 4.5 gm/ Dextrose) 100 mls @ 200 mls/hr IVPB Q8H-IV DONG Last Admin: 02/05/17 10:02 Dose: 200 mls/hr Morphine Sulfate (Morphine Sulfate) 4 mg IVPUSH Q6H PRN PRN Reason: PAIN Ondansetron HCl (Zofran Odt -) 4 mg SL Q6H PRN PRN Reason: NAUSEA AND/OR VOMITING - Objective Vital Signs: Vital Signs Temperature 98 F 02/05/17 14:30 Pulse Rate 73 02/05/17 14:30 Respiratory Rate 18 02/05/17 14:30 Blood Pressure 139/78 02/05/17 14:30 O2 Sat by Pulse Oximetry (%) 100 02/04/17 22:00 Constitutional: Yes: Mild Distress Eyes: Yes: WNL HENT: Yes: WNL Neck: Yes: WNL Cardiovascular: Yes: WNL Respiratory: Yes: WNL Gastrointestinal: Yes: WNL Musculoskeletal: Yes: WNL Extremities: Yes: WNL Edema: No Peripheral Pulses WNL: Yes Wound/Incision: Yes: Dressing Dry and Intact Neurological: Yes: WNL ...Motor Strength: WNL Psychiatric: Yes: WNL Labs: CBC, BMP 02/05/17 08:45 02/04/17 07:00 INR, PTT INR 1.11 (0.82-1.09) 02/03/17 12:20 Problem List - Problems (1) Chronic constipation Code(s): K59.09 - OTHER CONSTIPATION (2) HTN (hypertension) Code(s): I10 - ESSENTIAL (PRIMARY) HYPERTENSION Qualifiers: Hypertension type: essential hypertension Qualified Code(s): I10 - Essential (primary) hypertension (3) Bee-rectal abscess Code(s): K61.1 - RECTAL ABSCESS Assessment/Plan DEBRIDEMENT WITH SURGERY IV ABX ID CONSULT DVT PROPHYLAXIS
--- NOTE | 2017-02-05 22:08 | PN ---
Progress Note, Physician Chief Complaint: left perianal/perirectal pain and wound/abscess History of Present Illness: POD2 s/p wide local debridement of left perineal Jess's gangrene overall feeling well tolerating diet voiding ok, no BM today pain controlled no specific complaints - Current Medication List Current Medications: Active Medications Benzocaine/Menthol (Cepacol Lozenge -) 1 each MM PRN PRN PRN Reason: SORE THROAT Last Admin: 02/05/17 17:51 Dose: 1 each Heparin Sodium (Porcine) (Heparin -) 5,000 unit SQ BID DONG Last Admin: 02/05/17 21:55 Dose: 5,000 unit Lactated Ringer's (Lactated Ringers Solution) 1,000 mls @ 75 mls/hr IV ASDIR DONG Last Admin: 02/05/17 17:52 Dose: 75 mls/hr Clindamycin Phosphate (Cleocin 900 Mg Premix Ivpb -) 900 mg in 50 mls @ 100 mls /hr IVPB Q8H-IV DONG Last Admin: 02/05/17 17:52 Dose: 100 mls/hr Piperacillin Sod/Tazobactam (Sod 4.5 gm/ Dextrose) 100 mls @ 200 mls/hr IVPB Q8H-IV DONG Last Admin: 02/05/17 17:52 Dose: 200 mls/hr Morphine Sulfate (Morphine Sulfate) 4 mg IVPUSH Q6H PRN PRN Reason: PAIN Last Admin: 02/05/17 19:42 Dose: 4 mg Ondansetron HCl (Zofran Odt -) 4 mg SL Q6H PRN PRN Reason: NAUSEA AND/OR VOMITING - Objective Vital Signs: Vital Signs Temperature 98 F 02/05/17 14:30 Pulse Rate 73 02/05/17 14:30 Respiratory Rate 18 02/05/17 14:30 Blood Pressure 139/78 02/05/17 14:30 O2 Sat by Pulse Oximetry (%) 100 02/05/17 09:00 Constitutional: Yes: Well Nourished, No Distress, Calm Eyes: Yes: Conjunctiva Clear, EOM Intact HENT: Yes: Atraumatic, Normocephalic Gastrointestinal: Yes: Soft. No: Distention, Tenderness ...Rectal Exam: Yes: Other (see wound section) Genitourinary: Yes: Other (left scrotal base - wound clean and pink, small spot of soft, yellow necrotic tissue at anterior edge of debrided area - anticipate will improve with dressing changes). No: Valderrama Present, Incontinence, Scrotal Edema (minimal) Musculoskeletal: No: Joint Stiffness, Joint Swelling Extremities: No: Cool Integumentary: No: Jaundice, Rash Wound/Incision: Yes: Dressing Removed (and changed for saline-dampened Kerlix, gauze and ABD pad, small crossed paper tape, hospital underwear to keep in place ), Draining (serosanguineous drainage on dressings), Unapproximated (left perineum onto scrotal base and edge of buttock; wound pink, clean, beginning to granulate in places). No: Dressing Dry and Intact (with drainage, difficult to keep in place using scrotal support and tape) Neurological: Yes: Alert, Oriented Psychiatric: Yes: Alert, Oriented Labs: CBC 02/05/17 08:45 Problem List - Problems (1) Jess gangrene Assessment/Plan: POD2 s/p wide local debridement of left perineum onto edge of buttock and scrotal base wound clean, pink, starting to granulate dressing changed with nurse - pt tolerated well with pain medication to continue dressing changes daily - if difficult to keep in place, may do bid d/c scrotal support - use hospital underwear to keep dressing in place urology input appreciated continue antibiotics culture pending pain meds prn Code(s): N49.3 - JESS GANGRENE (2) Chronic constipation Code(s): K59.09 - OTHER CONSTIPATION (3) HTN (hypertension) Code(s): I10 - ESSENTIAL (PRIMARY) HYPERTENSION Qualifiers: Hypertension type: essential hypertension Qualified Code(s): I10 - Essential (primary) hypertension (4) Hypercholesteremia Code(s): E78.00 - PURE HYPERCHOLESTEROLEMIA, UNSPECIFIED
[2017-02-06] MEDS ORDERED: PT OWN MED DRAWER 7, Y5N ONE ×3 (01:05→16:49)
[2017-02-06] MEDS: PIPERACILLIN/TAZOB 4.5 GM 4.5 GM in DEXTROSE 5%-WATER - 100 ML IVPB SCH ×3 (01:13→17:57)
[2017-02-06] MEDS: CLINDAMYCIN 900 MG PREMIX IVPB 900 MG/50 ML BAG IVPB SCH ×3 (01:13→17:18)
[2017-02-06 08:57] LABS: HEMATOCRIT 39.5 % (35.4-49); HEMOGLOBIN 12.7 GM/dL (11.7-16.9); MCH 29.5 pg (25.7-33.7); MCHC 32.2 g/dl (32.0-35.9); MEAN CELL VOLUME 91.7 fl (80-96); MEAN PLT VOLUME 7.5 fl (7.5-11.1); PLATELET COUNT 360 K/MM3 (134-434); RBC 4.31 M/mm3 (4.00-5.60); RDW 15.9 % (11.9-15.9); WHITE BLOOD COUNT 9.5 K/mm3 (4.0-10.0)
[2017-02-06] MEDS: LACTATED RINGERS SOLUTION 1,000 ML IV SCH ×2 (10:32→21:17)
[2017-02-06] MEDS: HEPARIN NA (PORCINE) 5,000 UNITS/ML 1ML VIAL SQ SCH ×2 (10:32→21:18)
[2017-02-06 10:39] LABS: PLATELET ESTIMATE NORMAL
--- NOTE | 2017-02-06 13:18 | PN ---
Progress Note, Physician History of Present Illness: Pt doing well, feels better. Denies fever/chills. Pain is controlled. Has no specific complaints. - Current Medication List Current Medications: Active Medications Benzocaine/Menthol (Cepacol Lozenge -) 1 each MM PRN PRN PRN Reason: SORE THROAT Last Admin: 02/05/17 17:51 Dose: 1 each Heparin Sodium (Porcine) (Heparin -) 5,000 unit SQ BID DONG Last Admin: 02/06/17 10:32 Dose: 5,000 unit Lactated Ringer's (Lactated Ringers Solution) 1,000 mls @ 75 mls/hr IV ASDIR DONG Last Admin: 02/06/17 10:32 Dose: 75 mls/hr Clindamycin Phosphate (Cleocin 900 Mg Premix Ivpb -) 900 mg in 50 mls @ 100 mls /hr IVPB Q8H-IV DONG Last Admin: 02/06/17 10:31 Dose: 100 mls/hr Piperacillin Sod/Tazobactam (Sod 4.5 gm/ Dextrose) 100 mls @ 200 mls/hr IVPB Q8H-IV DONG Last Admin: 02/06/17 10:34 Dose: 200 mls/hr Morphine Sulfate (Morphine Sulfate) 4 mg IVPUSH Q6H PRN PRN Reason: PAIN Last Admin: 02/05/17 19:42 Dose: 4 mg Ondansetron HCl (Zofran Odt -) 4 mg SL Q6H PRN PRN Reason: NAUSEA AND/OR VOMITING - Objective Vital Signs: Vital Signs Temperature 98.0 F 02/06/17 09:22 Pulse Rate 72 02/06/17 09:22 Respiratory Rate 20 02/06/17 09:22 Blood Pressure 134/72 02/06/17 09:22 O2 Sat by Pulse Oximetry (%) 100 02/05/17 09:00 Constitutional: Yes: No Distress, Calm Neck: Yes: Supple Cardiovascular: Yes: Regular Rate and Rhythm Respiratory: Yes: Regular Gastrointestinal: Yes: Normal Bowel Sounds, Soft Extremities: Yes: WNL Wound/Incision: Yes: Dressing Dry and Intact Labs: CBC, BMP 02/06/17 07:50 02/04/17 07:00 INR, PTT INR 1.11 (0.82-1.09) 02/03/17 12:20 Microbiology 02/03/17 10:47 Blood - Peripheral Venous Blood Culture - Preliminary NO GROWTH OBTAINED AFTER 72 HOURS, INCUBATION TO CONTINUE FOR 2 DAYS. 02/03/17 10:47 Blood - Peripheral Venous Blood Culture - Preliminary NO GROWTH OBTAINED AFTER 72 HOURS, INCUBATION TO CONTINUE FOR 2 DAYS. 02/03/17 08:25 Abscess Gram Stain - Final 02/03/17 08:25 Abscess Wound Culture - Preliminary Escherichia Coli Group D Strep Or Entero Coccus Staphylococcus Coagulase Neg 02/03/17 12:20 Urine - Urine Clean Catch Urine Culture - Final NO GROWTH OBTAINED Problem List - Problems (1) Bee-rectal abscess Code(s): K61.1 - RECTAL ABSCESS (2) HTN (hypertension) Code(s): I10 - ESSENTIAL (PRIMARY) HYPERTENSION Qualifiers: Hypertension type: essential hypertension Qualified Code(s): I10 - Essential (primary) hypertension (3) Hypercholesteremia Code(s): E78.00 - PURE HYPERCHOLESTEROLEMIA, UNSPECIFIED (4) Jess gangrene Code(s): N49.3 - JESS GANGRENE Assessment/Plan 66 y.o. male with bee-anal/perineal necrotic abscess/Jess's gangrene -- continue antibiotics -- f/u wound culture results/sensitivities -- pt doing better -- continue wound care, surgery following
--- NOTE | 2017-02-06 15:03 | PN ---
Progress Note, Physician Chief Complaint: AWAKE ALERT NO FEVERS OR CHILLS + APPETITE COMFORTABLE - Current Medication List Current Medications: Active Medications Benzocaine/Menthol (Cepacol Lozenge -) 1 each MM PRN PRN PRN Reason: SORE THROAT Last Admin: 02/05/17 17:51 Dose: 1 each Heparin Sodium (Porcine) (Heparin -) 5,000 unit SQ BID DONG Last Admin: 02/06/17 10:32 Dose: 5,000 unit Lactated Ringer's (Lactated Ringers Solution) 1,000 mls @ 75 mls/hr IV ASDIR DONG Last Admin: 02/06/17 10:32 Dose: 75 mls/hr Clindamycin Phosphate (Cleocin 900 Mg Premix Ivpb -) 900 mg in 50 mls @ 100 mls /hr IVPB Q8H-IV DONG Last Admin: 02/06/17 10:31 Dose: 100 mls/hr Piperacillin Sod/Tazobactam (Sod 4.5 gm/ Dextrose) 100 mls @ 200 mls/hr IVPB Q8H-IV DONG Last Admin: 02/06/17 10:34 Dose: 200 mls/hr Morphine Sulfate (Morphine Sulfate) 4 mg IVPUSH Q6H PRN PRN Reason: PAIN Last Admin: 02/05/17 19:42 Dose: 4 mg Ondansetron HCl (Zofran Odt -) 4 mg SL Q6H PRN PRN Reason: NAUSEA AND/OR VOMITING - Objective Vital Signs: Vital Signs Temperature 98.0 F 02/06/17 09:22 Pulse Rate 72 02/06/17 09:22 Respiratory Rate 20 02/06/17 09:22 Blood Pressure 134/72 02/06/17 09:22 O2 Sat by Pulse Oximetry (%) 100 02/05/17 09:00 Constitutional: Yes: Mild Distress Eyes: Yes: WNL HENT: Yes: WNL Neck: Yes: WNL Cardiovascular: Yes: WNL Respiratory: Yes: WNL Gastrointestinal: Yes: WNL Genitourinary: Yes: WNL Musculoskeletal: Yes: WNL Extremities: Yes: WNL Edema: No Peripheral Pulses WNL: Yes Integumentary: Yes: Other Wound/Incision: Yes: Dressing Dry and Intact Neurological: Yes: WNL ...Motor Strength: WNL Psychiatric: Yes: WNL Labs: CBC, BMP 02/06/17 07:50 02/04/17 07:00 INR, PTT INR 1.11 (0.82-1.09) 02/03/17 12:20 Problem List - Problems (1) Chronic constipation Code(s): K59.09 - OTHER CONSTIPATION (2) HTN (hypertension) Code(s): I10 - ESSENTIAL (PRIMARY) HYPERTENSION Qualifiers: Hypertension type: essential hypertension Qualified Code(s): I10 - Essential (primary) hypertension (3) Bee-rectal abscess Code(s): K61.1 - RECTAL ABSCESS Assessment/Plan DEBRIDEMENT WITH SURGERY IV ABX ID CONSULT DVT PROPHYLAXIS PT EVAL
--- NOTE | 2017-02-06 18:50 | PN ---
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 overall feeling well tolerating diet voiding ok, no BM yet pain controlled no specific complaints Vital Signs Period Temp Pulse Resp BP Sys/Borrero Pulse Ox Last 24 Hr 97.9 F-98.8 F 70-83 20-20 123-138/70-88 PE: A&O abdomen soft, nontender no edema or cyanosis perineal wound dressing changed with nurse - wound pink and clean, beginning to granulate in places serosang drainage on old dressing no significant necrotic tissue saline-damp Kerlix placed on wound, covered with 4x4 gauze, ABD pad with crossed paper tape to hold in place, hospital underwear over that CBC 02/06/17 07:50 Microbiology 02/03/17 10:47 Blood Culture - Preliminary Blood - Peripheral Venous NO GROWTH OBTAINED AFTER 72 HOURS, INCUBATION TO CONTINUE FOR 2 DAYS. 02/03/17 10:47 Blood Culture - Preliminary Blood - Peripheral Venous NO GROWTH OBTAINED AFTER 72 HOURS, INCUBATION TO CONTINUE FOR 2 DAYS. 02/03/17 08:25 Gram Stain - Final Abscess Wound Culture - Preliminary Escherichia Coli Group D Strep Or Entero Coccus Staphylococcus Coagulase Neg pansensitive E. 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
[2017-02-07] MEDS: LACTATED RINGERS SOLUTION 1,000 ML IV SCH ×2 (01:26→17:15)
[2017-02-07] MEDS ORDERED: PT OWN MED DRAWER 7, Y5N ONE ×2 (01:27→10:15)
[2017-02-07] MEDS: CLINDAMYCIN 900 MG PREMIX IVPB 900 MG/50 ML BAG IVPB SCH ×3 (01:28→17:52)
[2017-02-07] MEDS: PIPERACILLIN/TAZOB 4.5 GM 4.5 GM in DEXTROSE 5%-WATER - 100 ML IVPB SCH ×3 (01:28→17:09)
[2017-02-07] MEDS: HEPARIN NA (PORCINE) 5,000 UNITS/ML 1ML VIAL SQ SCH ×2 (10:19→21:36)
--- NOTE | 2017-02-07 11:04 | PN ---
Progress Note, Physician History of Present Illness: no complaints patient was debrided again remaining stable - Current Medication List Current Medications: Active Medications Benzocaine/Menthol (Cepacol Lozenge -) 1 each MM PRN PRN PRN Reason: SORE THROAT Last Admin: 02/05/17 17:51 Dose: 1 each Heparin Sodium (Porcine) (Heparin -) 5,000 unit SQ BID DONG Last Admin: 02/07/17 10:19 Dose: 5,000 unit Lactated Ringer's (Lactated Ringers Solution) 1,000 mls @ 75 mls/hr IV ASDIR DONG Last Admin: 02/07/17 01:26 Dose: 75 mls/hr Clindamycin Phosphate (Cleocin 900 Mg Premix Ivpb -) 900 mg in 50 mls @ 100 mls /hr IVPB Q8H-IV DONG Last Admin: 02/07/17 01:28 Dose: 100 mls/hr Piperacillin Sod/Tazobactam (Sod 4.5 gm/ Dextrose) 100 mls @ 200 mls/hr IVPB Q8H-IV DONG Last Admin: 02/07/17 10:19 Dose: 200 mls/hr Ondansetron HCl (Zofran Odt -) 4 mg SL Q6H PRN PRN Reason: NAUSEA AND/OR VOMITING - Objective Vital Signs: Vital Signs Temperature 98.7 F 02/07/17 05:49 Pulse Rate 90 02/07/17 05:49 Respiratory Rate 20 02/07/17 05:49 Blood Pressure 120/82 02/07/17 05:49 O2 Sat by Pulse Oximetry (%) 100 02/05/17 09:00 Constitutional: Yes: No Distress, Calm Cardiovascular: Yes: Regular Rate and Rhythm Respiratory: Yes: Regular, CTA Bilaterally Gastrointestinal: Yes: Normal Bowel Sounds, Soft Genitourinary: Yes: Other (debridement including scrotal skin) Musculoskeletal: Yes: WNL Extremities: Yes: WNL Wound/Incision: Yes: Dressing Dry and Intact, Other (wound looks clean) Neurological: Yes: Alert, Oriented Psychiatric: Yes: Alert, Oriented Labs: CBC, BMP 02/06/17 07:50 02/04/17 07:00 INR, PTT INR 1.11 (0.82-1.09) 02/03/17 12:20 Assessment/Plan Problem List - Problems (1) José-rectal abscess Assessment/Plan: 66 yo male with left josé-anal/gluteal abscess with early extension to the perineum and josé-rectal [id number] foul smelling draining Code(s): K61.1 - RECTAL ABSCESS (2) HTN (hypertension) Code(s): I10 - ESSENTIAL (PRIMARY) HYPERTENSION Qualifiers: Hypertension type: essential hypertension Qualified Code(s): I10 - Essential (primary) hypertension (3) Hypercholesteremia Code(s): E78.00 - PURE HYPERCHOLESTEROLEMIA, UNSPECIFIED (4) Chronic constipation Code(s): K59.09 - OTHER CONSTIPATION leukocytosis wbc has normalized plan continue as per surgery continue abx dressing to be continued will need [facility] plan will d/ew surgery further plans
--- NOTE | 2017-02-07 17:40 | PN ---
Progress Note, Physician Chief Complaint: AWAKE ALERT NO FEVERS OR CHILLS + APPETITE COMFORTABLE - Current Medication List Current Medications: Active Medications Benzocaine/Menthol (Cepacol Lozenge -) 1 each MM PRN PRN PRN Reason: SORE THROAT Last Admin: 02/05/17 17:51 Dose: 1 each Heparin Sodium (Porcine) (Heparin -) 5,000 unit SQ BID DONG Last Admin: 02/07/17 10:19 Dose: 5,000 unit Lactated Ringer's (Lactated Ringers Solution) 1,000 mls @ 75 mls/hr IV ASDIR DONG Last Admin: 02/07/17 17:15 Dose: 75 mls/hr Clindamycin Phosphate (Cleocin 900 Mg Premix Ivpb -) 900 mg in 50 mls @ 100 mls /hr IVPB Q8H-IV DONG Last Admin: 02/07/17 11:18 Dose: 100 mls/hr Piperacillin Sod/Tazobactam (Sod 4.5 gm/ Dextrose) 100 mls @ 200 mls/hr IVPB Q8H-IV DONG Last Admin: 02/07/17 17:09 Dose: 200 mls/hr Ondansetron HCl (Zofran Odt -) 4 mg SL Q6H PRN PRN Reason: NAUSEA AND/OR VOMITING - Objective Vital Signs: Vital Signs Temperature 98.4 F 02/07/17 14:00 Pulse Rate 79 02/07/17 14:00 Respiratory Rate 18 02/07/17 14:00 Blood Pressure 133/89 02/07/17 14:00 O2 Sat by Pulse Oximetry (%) 100 02/05/17 09:00 Constitutional: Yes: No Distress Eyes: Yes: WNL HENT: Yes: WNL Neck: Yes: WNL Cardiovascular: Yes: WNL Respiratory: Yes: WNL Gastrointestinal: Yes: WNL Genitourinary: Yes: WNL Musculoskeletal: Yes: WNL Extremities: Yes: WNL Edema: No Peripheral Pulses WNL: Yes Wound/Incision: Yes: Dressing Dry and Intact Neurological: Yes: WNL ...Motor Strength: WNL Psychiatric: Yes: WNL Labs: CBC, BMP 02/06/17 07:50 02/04/17 07:00 INR, PTT INR 1.11 (0.82-1.09) 02/03/17 12:20 Problem List - Problems (1) Chronic constipation Code(s): K59.09 - OTHER CONSTIPATION (2) HTN (hypertension) Code(s): I10 - ESSENTIAL (PRIMARY) HYPERTENSION Qualifiers: Hypertension type: essential hypertension Qualified Code(s): I10 - Essential (primary) hypertension (3) Bee-rectal abscess Code(s): K61.1 - RECTAL ABSCESS Assessment/Plan DEBRIDEMENT WITH SURGERY IV ABX ID CONSULT DVT PROPHYLAXIS PT EVAL
--- NOTE | 2017-02-07 19:34 | PN ---
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 overall feeling well tolerating diet voiding ok, has had soft BM minimal pain, not really using meds no specific complaints Vital Signs Period Temp Pulse Resp BP Sys/Borrero Pulse Ox Last 24 Hr 98.4 F-98.7 F 79-90 18-20 120-133/82-89 PE: A&O abdomen soft, nontender no edema or cyanosis perineal wound dressing changed with nurse - wound pink and clean, beginning to granulate in places serosang drainage on old dressing no significant necrotic tissue ~1cm pale/white-yellow based spot at superolateral edge of wound on left scrotum - appears less necrotic and more like underlying capsule saline-damp Kerlix placed on wound, covered with 4x4 gauze, ABD pad with crossed paper tape to hold in place, hospital underwear over that Microbiology 02/03/17 08:25 Gram Stain - Final Abscess Wound Culture - Final Escherichia Coli Streptococcus Bovis Staphylococcus Coagulase Neg 02/03/17 10:47 Blood Culture - Preliminary Blood - Peripheral Venous NO GROWTH OBTAINED AFTER 96 HOURS, INCUBATION TO CONTINUE FOR 1 DAYS. 02/03/17 10:47 Blood Culture - Preliminary Blood - Peripheral Venous NO GROWTH OBTAINED AFTER 96 HOURS, INCUBATION TO CONTINUE FOR 1 DAYS. A/P: POD4 s/p wide local debridement of left perineum onto edge of buttock and scrotal base wound clean, pink, starting to granulate dressing changed with nurse - pt tolerated well without pain medication to continue dressing changes bid hospital underwear to keep dressing in place continue antibiotics per ID - likely can change to po soon cultures with S. bovis - pt will need echo eval at some point for vegetations, ? 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
[2017-02-08] MEDS: CLINDAMYCIN 900 MG PREMIX IVPB 900 MG/50 ML BAG IVPB SCH ×2 (02:35→10:08)
[2017-02-08] MEDS: PIPERACILLIN/TAZOB 4.5 GM 4.5 GM in DEXTROSE 5%-WATER - 100 ML IVPB SCH ×2 (02:36→10:08)
[2017-02-08] MEDS: LACTATED RINGERS SOLUTION 1,000 ML IV SCH ×2 (06:16→10:09)
[2017-02-08 07:44] LABS: HEMATOCRIT 40.9 % (35.4-49); HEMOGLOBIN 13.4 GM/dL (11.7-16.9); MCH 29.6 pg (25.7-33.7); MCHC 32.8 g/dl (32.0-35.9); MEAN CELL VOLUME 90.5 fl (80-96); MEAN PLT VOLUME 7.1 fl (7.5-11.1); PLATELET COUNT 359 K/MM3 (134-434); RBC 4.52 M/mm3 (4.00-5.60); RDW 15.6 % (11.9-15.9); WHITE BLOOD COUNT 8.1 K/mm3 (4.0-10.0)
[2017-02-08 08:06] LABS: ANION GAP 10 (8-16); BLOOD UREA NITROGEN 11 mg/dL (7-18); CALCIUM 8.9 mg/dL (8.5-10.1); CHLORIDE 103 mmol/L (98-107); CO2 23 mmol/L (21-32); CREATININE 1.1 mg/dL (0.7-1.3); GLUCOSE,RANDOM 82 mg/dL (74-106); SODIUM 136 mmol/L (136-145)
--- NOTE | 2017-02-08 09:30 | PN ---
Progress Note, Physician Chief Complaint: perianal necrotizing infection History of Present Illness: 66 yo male PMH HTN on monotheerapy, hypercholeterolemia, s/p right hand partial finger amputation presented to the ED sen from wound care center with extensive left bee-anal pain and four smelling drainage worsening for 1 week. s/p sharp debridement of he left bee-anal and perineal area POD#5 - Current Medication List Current Medications: Active Medications Benzocaine/Menthol (Cepacol Lozenge -) 1 each MM PRN PRN PRN Reason: SORE THROAT Last Admin: 02/05/17 17:51 Dose: 1 each Heparin Sodium (Porcine) (Heparin -) 5,000 unit SQ BID DONG Last Admin: 02/07/17 21:36 Dose: 5,000 unit Lactated Ringer's (Lactated Ringers Solution) 1,000 mls @ 75 mls/hr IV ASDIR DONG Last Admin: 02/08/17 06:16 Dose: 75 mls/hr Clindamycin Phosphate (Cleocin 900 Mg Premix Ivpb -) 900 mg in 50 mls @ 100 mls /hr IVPB Q8H-IV DONG Last Admin: 02/08/17 02:35 Dose: 100 mls/hr Piperacillin Sod/Tazobactam (Sod 4.5 gm/ Dextrose) 100 mls @ 200 mls/hr IVPB Q8H-IV DONG Last Admin: 02/08/17 02:36 Dose: 200 mls/hr Ondansetron HCl (Zofran Odt -) 4 mg SL Q6H PRN PRN Reason: NAUSEA AND/OR VOMITING - Objective Vital Signs: Vital Signs Temperature 98.1 F 02/08/17 06:00 Pulse Rate 78 02/08/17 06:00 Respiratory Rate 18 02/08/17 06:00 Blood Pressure 127/88 02/08/17 06:00 O2 Sat by Pulse Oximetry (%) 100 02/05/17 09:00 Constitutional: Yes: Well Nourished, No Distress, Calm Eyes: Yes: Conjunctiva Clear, EOM Intact HENT: Yes: Atraumatic, Normocephalic Neck: Yes: Supple, Trachea Midline Cardiovascular: Yes: Regular Rate and Rhythm, S1, S2 Respiratory: Yes: Regular, CTA Bilaterally, Cough (non procustive/ dry) Gastrointestinal: Yes: Normal Bowel Sounds, Soft ...Rectal Exam: Yes: Deferred, Other (perineal wound left gluteal) Edema: No Peripheral Pulses WNL: Yes Peripheral Pulses: Left Doralis Pedis: 2+, Right Dorsalis Pedis: 2+ Wound/Incision: Yes: Clean/Dry, Dressing Removed, Unapproximated Neurological: Yes: Alert, Oriented Psychiatric: Yes: Alert, Oriented Labs: CBC, BMP 02/08/17 06:25 02/08/17 06:25 INR, PTT INR 1.11 (0.82-1.09) 02/03/17 12:20 Problem List - Problems (1) Jess gangrene Assessment/Plan: 66 yo male with left bee-anal/gluteal abscess with early extension to the perineum and bee-rectal s/p sharp debridement Home regimen PO antibiotics per ID - Augmentin Adequate Analgesia local wound care - dressing daily VNS and significant other Wound Measurement: left perianal and perineum, 15cm X 8cm X 2cm Dressing: Fat emulsion Dressing, 4X4 gauze, ABD/ Combine and Silk tape and disposable underwear f/u with Dr. Mckenzie 2 weeks after discharge Code(s): N49.3 - JESS GANGRENE (2) Bee-rectal abscess Code(s): K61.1 - RECTAL ABSCESS (3) HTN (hypertension) Code(s): I10 - ESSENTIAL (PRIMARY) HYPERTENSION Qualifiers: Hypertension type: essential hypertension Qualified Code(s): I10 - Essential (primary) hypertension (4) Hypercholesteremia Code(s): E78.00 - PURE HYPERCHOLESTEROLEMIA, UNSPECIFIED (5) Chronic constipation Code(s): K59.09 - OTHER CONSTIPATION
[2017-02-08] MEDS: HEPARIN NA (PORCINE) 5,000 UNITS/ML 1ML VIAL SQ SCH (10:08)
[2017-02-08] MEDS: BENZOCAINE/MENTH/CETYLPYRD CL 1 EACH LOZENGE MM PRN (10:08)
--- NOTE | 2017-02-08 14:30 | PN ---
Progress Note, Physician History of Present Illness: no complaints patient stable - Current Medication List Current Medications: Active Medications Benzocaine/Menthol (Cepacol Lozenge -) 1 each MM PRN PRN PRN Reason: SORE THROAT Last Admin: 02/08/17 10:08 Dose: 1 each Heparin Sodium (Porcine) (Heparin -) 5,000 unit SQ BID DONG Last Admin: 02/08/17 10:08 Dose: 5,000 unit Clindamycin Phosphate (Cleocin 900 Mg Premix Ivpb -) 900 mg in 50 mls @ 100 mls /hr IVPB Q8H-IV DONG Last Admin: 02/08/17 10:08 Dose: 100 mls/hr Piperacillin Sod/Tazobactam (Sod 4.5 gm/ Dextrose) 100 mls @ 200 mls/hr IVPB Q8H-IV DONG Last Admin: 02/08/17 10:08 Dose: 200 mls/hr Ondansetron HCl (Zofran Odt -) 4 mg SL Q6H PRN PRN Reason: NAUSEA AND/OR VOMITING - Objective Vital Signs: Vital Signs Temperature 98.8 F 02/08/17 09:00 Pulse Rate 80 02/08/17 09:00 Respiratory Rate 18 02/08/17 09:00 Blood Pressure 123/78 02/08/17 09:00 O2 Sat by Pulse Oximetry (%) 100 02/05/17 09:00 Constitutional: Yes: No Distress, Calm Cardiovascular: Yes: Regular Rate and Rhythm Respiratory: Yes: Regular, CTA Bilaterally Gastrointestinal: Yes: Normal Bowel Sounds, Soft Musculoskeletal: Yes: WNL Extremities: Yes: WNL Integumentary: Yes: Other Wound/Incision: Yes: Dressing Dry and Intact, Other (wound clean no draiange) Neurological: Yes: Alert, Oriented Psychiatric: Yes: Alert, Oriented Labs: CBC, BMP 02/08/17 06:25 02/08/17 06:25 INR, PTT INR 1.11 (0.82-1.09) 02/03/17 12:20 Assessment/Plan Problem List - Problems (1) José-rectal abscess Assessment/Plan: 66 yo male with left josé-anal/gluteal abscess with early extension to the perineum and josé-rectal [id number] foul smelling draining Code(s): K61.1 - RECTAL ABSCESS (2) HTN (hypertension) Code(s): I10 - ESSENTIAL (PRIMARY) HYPERTENSION Qualifiers: Hypertension type: essential hypertension Qualified Code(s): I10 - Essential (primary) hypertension (3) Hypercholesteremia Code(s): E78.00 - PURE HYPERCHOLESTEROLEMIA, UNSPECIFIED (4) Chronic constipation Code(s): K59.09 - OTHER CONSTIPATION leukocytosis wbc has normalized plan we can switch to oral abx tomorrow augmentin 875mg twice a day for 2 weeks wound care rest as per surgery
--- NOTE | 2017-02-08 14:58 | PATH ---
Surgical Pathology Report Patient Name: SHARRON SAVAGE [facility]. Rec. #: [id number] /Age/Gender: 1950 (Age: 66) / M Account: [id number] Location: [address] [place] [address]/[facility] Taken: 02/03/2017 Received: 02/04/2017 Reported: 02/08/2017 Physicians: PHYSICIAN EMERGENCY DEPT Specimen(s) Received PERINEAL SKIN NECROSIS Clinical History Perianal abscess, Jess's Gangrene Final Diagnosis SKIN, PERINEAL, EXCISION: SKIN AND UNDERLYING SOFT TISSUE WITH MARKED ACUTE AND CHRONIC NECROTIZING INFLAMMATION. Electronically Signed Debi Rehman M.D. Gross Description Received in formalin labeled "perineal skin," is a 12.0 x 4.5 x 1.0 cm portion of carvajal-brown, ulcerated, necrotic skin with underlying soft tissue. Derrickman Helper sections are submitted in one cassette. 02/04/201702/04/2017
[2017-02-08] MEDS ORDERED: PIPERACILLIN/TAZOB 3.375 GM 3.375 GM in DEXTROSE 5%-WATER - 50 ML IVPB SCH (15:15)
--- NOTE | 2017-02-08 15:20 | DS ---
Physical Examination Vital Signs: Vital Signs Temperature 98.8 F 02/08/17 09:00 Pulse Rate 80 02/08/17 09:00 Respiratory Rate 18 02/08/17 09:00 Blood Pressure 123/78 02/08/17 09:00 O2 Sat by Pulse Oximetry (%) 100 02/05/17 09:00 Findings/Remarks: awake alert feeling better Constitutional: Yes: No Distress Eyes: Yes: WNL HENT: Yes: WNL Neck: Yes: WNL Cardiovascular: Yes: WNL Respiratory: Yes: WNL Gastrointestinal: Yes: WNL Musculoskeletal: Yes: WNL Extremities: Yes: Other (wound lower extremity left wound dressing) Edema: No Peripheral Pulses WNL: Yes Wound/Incision: Yes: Dressing Dry and Intact Neurological: Yes: WNL ...Motor Strength: WNL Psychiatric: Yes: WNL Labs: CBC, BMP 02/08/17 06:25 02/08/17 06:25 Discharge Summary Reason For Visit: ABSCESS OF RECTUM Current Active Problems Chronic constipation (Acute) Jess gangrene (Acute) HTN (hypertension) (Acute) Hypercholesteremia (Acute) Bee-rectal abscess (Acute) Rectal abscess (Acute) Procedures: Principal: surgery lower extremity debridement Hospital Course: abx iv post op debridement lower extremity with daily wound care. Condition: Fair - Instructions Diet, Activity, Other Instructions: Postoperative instructions: You had a Sharp debridement of perianal and perineum abscess on by 02/03/2017 Dr. Juan José Mckenzie of [facility]. Activity: Resume your usual activities gradually, but no heavy exertion or lifting more than 10-15 pounds for 4-6 weeks. Remove dressings 48 hours after surgery, if they are not already off. You may shower daily starting then, just pat the incision areas dry. Tania should not need to be recovered with any dressings, unless you have been told otherwise. Eat lightly at first, but advance to your usual diet as tolerated. Pain: For pain, you may use and alternate Tylenol (acetaminophen) and/or ibuprofen every 6 hours each as needed; this means that you can take one OR the other at 3-hour intervals. If you are prescribed a Tylenol/narcotic combination for severe pain, use it instead of plain Tylenol as needed and switch back when your pain starts decreasing. Do not take more than 4000mg of acetaminophen in a day. Take medications as prescribed or indicated on the labeling. Follow-up: Call Dr. Mckenzie' office at [phone] to make your postop appointment (Tuesday 1-2 weeks after surgery as advised). Clinic is held in the Diagnostic Center on the first floor of [facility]. Call the office if you have: * increasing pain not responsive to pain medication * fever of 101F or higher * unusual or increasing bleeding or drainage from wounds * increasing redness or swelling at wound sites Also, see your primary medical doctor within 1-2 weeks. Referrals: Jacobo Denson [Primary Care Provider] - Disposition: VNS/HOME HEALTH CARE - Home Medications Comprehensive Discharge Medication List: Ambulatory Orders Acetaminophen [Tylenol] 325 mg PO QID #90 tablet MDD 6 02/08/17 Amoxicillin/Potassium Clav [Augmentin 875-125 Tablet] 1 each PO BID #14 tablet 02/08/17
[2017-02-08] MEDS ORDERED: PIPERACILLIN/TAZOB 3.375 GM 3.375 GM in DEXTROSE 5%-WATER - 100 ML IVPB SCH (15:45)
[2017-02-08 16:37] VITALS: BP 132/85; PULSE 85; TEMP 98.5
--- NOTE | 2017-02-08 23:17 | OP ---
DATE OF OPERATION: 02/03/2017 PREOPERATIVE DIAGNOSIS: Left perianal and perineal abscesses. POSTOPERATIVE DIAGNOSIS: Left perianal and Jess's wet gangrene. PROCEDURE: Sharp debridement of perianal and perineal necrotizing infection, Jess's gangrene debridement. CULTURES: Sent from the site. SPECIMEN: Gangrenous skin and connective tissue of left perianal and perineal area. ESTIMATED BLOOD LOSS: 5 mL. INSTRUMENTS USED FOR DEBRIDEMENT: Bovie cautery, curved Morales scissors, and number 10 scalpel. DRAINS: None. INTRAVENOUS FLUID REPLACED: 1200 mL. ATTENDING SURGEON: Juan José Mckenzie MD MOTOR VEHICLE ESCORT DRIVER: No one. ANESTHESIOLOGIST: Jose Rhodes MD ANESTHESIA: General. INDICATIONS: Patient is a 66-year-old male presenting with worsening saddle sore over the course of a week and a half. It started as a pimple and gradually got worse and the mass is located in the left perianal area, extending towards the left scrotum to the perineum. He did not seek medical attention prior to his presentation to the emergency department. Upon inspection, he was noted to have what appeared to be an early Jess's wet gangrene with obvious necrosis, foul-smelling odor. He was counseling regarding the need for surgical debridement. He signed informed consent after he was explained the risks, benefits, and alternatives and had his questions answered to his satisfaction. He was then taken emergently for the procedure. PROCEDURE: Patient was brought to the operating room and placed in supine position with both arms extended to 90 degrees. He was prepped and draped and the buttocks were accessed. Patient had an LMA placed, at which point we placed the patient into stirrups in the lithotomy position to allow for adequate access to the left perianal and gluteal area as well as the perineum and scrotum. The area was prepped and draped in the standard surgical fashion. A formal timeout was completed. The patient received intravenous antibiotics prior to the start of the case including broad-spectrum antibiotics, Zosyn and vancomycin. We then proceeded after a formal timeout with scribing the skin and encircling the necrotic wet gangrene in the left perianal area as well as extension into the scrotum as it could be seen from the skin. We incised with a 15-blade scalpel and deepened in line to the subcutaneous tissue with a Bovie cautery, encircling the necrotic patch, which was debrided, and then sharply from the tissue below with Morales scissors. It was cleaned until the bleeding edges could be seen, both in the perianal area. It appeared to spare the sphincter complex of the anus. It also did appear to go only through the superficial layers of the gluteus jimmie. It extended anteriorly onto the perianal area and the left mac-peritoneal area and left hemiscrotum was mildly affected. The tissue that appeared gangrenous and necrotic was debrided. Cultures were sent from the deep layers that appeared to have a foul-smelling thin drainage. The skin itself was then sent for pathologic examination. The area was then measured and appeared to be 15.2 cm x 8.1 cm x 2 cm in depth and involved muscle, muscle fascia, skin, and subcutaneous fat. When the area was cleaned, all bleeding was controlled using Bovie cautery and pressure. There appeared to be no additional areas of necrosis. No additional foul-smelling areas of purulent drainage. At this point, the wound was first dressed with Betadine-soaked Kerlix as well as an absorbant dressing including 4 x 4 gauze and abdominal combine pad, which was taped to the skin with paper tape. All counts were correct. The patient recovered from general anesthesia and was returned to the PACU in stable condition. MD YANIQUE Guadalupe/[id number]
== END 2017-02-08 17:47 | disposition home health service (06) | DRG 501 ==
LOC: JER 10:33 → JERBED 15:28 → J6S 21:55
PROVIDERS: ADMIT Family Medicine; ATTEND Family Medicine
PROC: 0JBB0ZZ Excision of Perineum Subcutaneous Tissue and Fascia, Open Approach (ICD-10-PCS; principal; 2017-02-08)
DX: N49.3 Fournier gangrene (principal); K61.1 Rectal abscess; I10 Essential (primary) hypertension; E78.00 Pure hypercholesterolemia, unspecified; F17.200 Nicotine dependence, unspecified, uncomplicated; L02.215 Cutaneous abscess of perineum; K59.09 Other constipation; Z89.021 Acquired absence of right finger(s)
CPT/HCPCS: 36415; 71010-TC; 72193-TC; 76705-TC; 80048; 80053; 80074; 81003; 82550; 82803; 83036; 83605; 84484; 85025; 85027; 85610; 85730; 86850; 86900; 86901; 87040; 87070; 87077; 87086; 87186; 87205; 87389; 88305-TC; 93005; 93010; 94010; 94760; 99282-25; J1644

== ENCOUNTER 2023-09-02 17:15 | Emergency (ER) | payer OTHER ==
[2023-09-02 17:33] VITALS: BP 119/80; PULSE 88; RESP 18; TEMP 98.4; BMI 21.8
[2023-09-02] MEDS ORDERED: ACETAMINOPHEN INJECTION 100 ML IVPB ONE (17:59)
[2023-09-02] MEDS: ACETAMINOPHEN 1000 MG/100 ML BAG IVPB ONE (18:09)
[2023-09-02] MEDS: SODIUM CHLORIDE 1,000 ML IV STA (18:09)
[2023-09-02] MEDS ORDERED: MAG HYDROX/AL HYDROX/SIMETH 30 ML UNIT-DOSE CUP ONE (18:12)
[2023-09-02] MEDS ORDERED: FAMOTIDINE 20 MG/50 ML IVPB 20 MG/50 ML MG IVPB ONE (18:12)
[2023-09-02] MEDS: FAMOTIDINE 20 MG/50 ML IVPB 20 MG/50 ML MG IVPB ONE (18:22)
[2023-09-02] MEDS: MAG HYDROX/AL HYDROX/SIMETH 30 ML UNIT-DOSE CUP PO ONE (18:22)
[2023-09-02 18:24] LABS: INR 0.96 (0.83-1.09); PROTHROMBIN TIME (PATIENT) 10.9 SEC (9.7-13.0)
[2023-09-02 18:25] LABS: BASO % 0.5 % (0-2.0); EOS % 1.8 % (0-4.5); HEMATOCRIT 40.9 % (35.4-49); HEMOGLOBIN 13.8 GM/dL (11.7-16.9); LYMPH % 29.7 % (8-40); MCH 32.3 pg (25.7-33.7); MCHC 33.8 g/dl (32.0-35.9); MEAN CELL VOLUME 95.7 fl (80-96); MEAN PLT VOLUME 8.3 fl (7.5-11.1); MONO % 13.5 % (3.8-10.2); NEUT % 54.5 % (42.8-82.8); PLATELET COUNT 266 10^3/uL (134-434); RBC 4.27 M/mm3 (4.00-5.60); RDW 17.3 % (11.9-15.9); WHITE BLOOD COUNT 5.8 K/mm3 (4.0-10.0)
[2023-09-02 18:27] LABS: ACTIVATED PTT 31.1 SECONDS (25.2-36.5)
[2023-09-02 18:35] LABS: POTASSIUM 3.8 mmol/L (3.5-5.1)
[2023-09-02 18:38] LABS: ALBUMIN 3.2 g/dl (3.4-5.0); BLOOD UREA NITROGEN 10.2 mg/dL (7-18)
[2023-09-02 18:41] LABS: CREATININE 1.5 mg/dL (0.55-1.3)
[2023-09-02 18:42] LABS: BILIRUBIN,TOTAL 0.5 mg/dL (0.2-1); TOT PROT 7.8 g/dl (6.4-8.2)
[2023-09-02 19:37] LABS: URINE APPEARANCE CLEAR; URINE BILIRUBIN NEGATIVE (NEGATIVE); URINE COLOR YELLOW; URINE GLUCOSE (UA) NEGATIVE (NEGATIVE); URINE KETONE NEGATIVE (NEGATIVE); URINE LEUK ESTERASE NEGATIVE (NEGATIVE); URINE NITRITE NEGATIVE (NEGATIVE); URINE PROTEIN NEGATIVE (NEGATIVE); URINE UROBILINOGEN 0.2 mg/dL (0.2-1.0)
== END 2023-09-02 20:23 | disposition home or self-care (01) ==
LOC: JER 17:15
PROC: 3E033GC Introduction of Other Therapeutic Substance into Peripheral Vein, Percutaneous Approach (ICD-10-PCS; principal; 2023-09-02)
PROC: 3E033NZ Introduction of Analgesics, Hypnotics, Sedatives into Peripheral Vein, Percutaneous Approach (ICD-10-PCS; 2023-09-02)
DX: R10.84 Generalized abdominal pain (principal)
CPT/HCPCS: 36415; 80053; 81003; 83690; 85025; 85610; 85730; 93005; 93010; 96365; 96375; 99284-25; J0131

== ENCOUNTER 2023-11-22 13:20 | Emergency (ER) | payer OTHER ==
[2023-11-22 13:42] VITALS: BP 123/88; PULSE 75; TEMP 98; BMI 23.9
[2023-11-22] MEDS ORDERED: IBUPROFEN 400 MG TABLET (FP) PO ONE (14:27)
[2023-11-22] MEDS: IBUPROFEN 400 MG TABLET (FP) PO ONE (14:32)
== END 2023-11-22 15:59 | disposition home or self-care (01) ==
LOC: JER 13:20
DX: R07.89 Other chest pain (principal); R00.2 Palpitations; W01.198A Fall on same level from slipping, tripping and stumbling with subsequent striking against other object, initial encounter
CPT/HCPCS: 71045-TC-FY; 71046-TC-FY; 93005; 93010; 99284-25